=== PATIENT | male | born 1970 ===

== ENCOUNTER → 2024-10-25 09:35 | Outpatient (BNVA) | payer MEDICARE, MEDICAID, SELFPAY | PROVIDERS: PCP Family Medicine; Referring Provider Family Medicine; Visit Provider Podiatrist | DX: E11.8 Type 2 diabetes mellitus with unspecified complications (principal); L60.0 Ingrowing nail; M79.672 Pain in left foot | CPT/HCPCS: 11750; 99204 ==

== ENCOUNTER 2024-11-22 03:14 | Outpatient (CLI) | payer MEDICARE, MEDICAID, SELFPAY ==
[2024-11-22 08:16] LABS: Abs Immature Grans 0.02 10^3/uL (0.0-0.06); Absolute Basophil Count 0.01 10^3/uL (0.0-0.2); Absolute Eosinophil Count 0.09 10^3/uL (0.0-0.7); Absolute Lymphocyte Count 1.22 10^3/uL (1.2-3.4); Absolute Neutrophil Count 4.08 10^3/uL (1.2-6.7); Basophils % 0.2 %; Eosinophils % 1.5 %; HCT 39.7 % (40.0-50.0); HGB 13.1 g/dL (13.5-17.5); Immature Grans % 0.3 %; Lymphocytes % 20.3 %; MCH 32.1 pg (27.0-33.0); MCV 97 fL (80-95); MPV 9.6 fL (8.0-11.0); Neutrophils % 67.7 %; Platelet Count 220 10^3/uL (130-400); RBC 4.08 10^6/uL (4.36-5.78); RDW 12.1 % (11.8-14.1); RDW-SD 43.8 fL; WBC 6.02 10^3/uL (4.4-10.8)
[2024-11-22 08:37] LABS: Hemoglobin A1C 5.6 % (<5.7)
[2024-11-22 09:09] LABS: ALT 51 U/L (16-63); AST 32 U/L (15-37); Albumin 3.1 g/dL (3.4-5.0); Alkaline Phosphatase 93 U/L (46-116); Bilirubin, Direct 0.2 mg/dL (0.0-0.2); Bilirubin, Total 0.6 mg/dL (0.2-1.0); C-Reactive Protein 13.47 mg/dL (<or=0.5)
[2024-11-22 09:17] LABS: ALT 52 U/L (16-63); AST 32 U/L (15-37); Albumin 3.1 g/dL (3.4-5.0); Alkaline Phosphatase 92 U/L (46-116); Anion Gap 11.2 mmol/L (3-11); BUN 39 mg/dL (7-18); Bilirubin, Total 0.6 mg/dL (0.2-1.0); CO2 26.8 mmol/L (21.0-32.0); CREATININE 2.1 mg/dL (0.70-1.30); Calcium 9.2 mg/dL (8.5-10.1); Calculated LDL 60 mg/dL (<100); Chloride 105 mmol/L (98-107); Cholesterol 133 mg/dL (<200); Estimated GFR 36.95 (mL/min/1.73m2); Glucose 134 mg/dL (74-106); HDL Cholesterol 51 mg/dL (>or=40); Potassium 4.5 mmol/L (3.5-5.1); Sodium 143 mmol/L (136-145); TSH 0.94 uIU/mL (0.36-3.74); Total Protein 7.9 g/dL (6.4-8.2); Triglyceride 111 mg/dL (<150)
[2024-11-26 13:39] LABS: TB Interpretation Negative (Negative)
== END 2024-11-22 03:15 | disposition home or self-care (01) ==
LOC: LBO 03:14
PROVIDERS: Internal Medicine Gastroenterology; PCP Family Medicine; Visit Provider Family Medicine
DX: K75.81 Nonalcoholic steatohepatitis (NASH) (principal); E11.9 Type 2 diabetes mellitus without complications; K50.90 Crohn's disease, unspecified, without complications; K50.818 Crohn's disease of both small and large intestine with other complication
CPT/HCPCS: 36415; 80053; 80061; 80076; 83036; 84443; 85025; 86140; 86480

== ENCOUNTER → 2024-11-27 13:13 | Outpatient (BNVA) | payer MEDICARE, MEDICAID, SELFPAY | PROVIDERS: PCP Family Medicine; Referring Provider Family Medicine; Visit Provider Podiatrist | DX: E11.8 Type 2 diabetes mellitus with unspecified complications (principal); L60.0 Ingrowing nail; M79.672 Pain in left foot | CPT/HCPCS: 99213 ==

== ENCOUNTER → 2025-06-04 12:55 | Outpatient (BNVA) | payer MEDICARE, MEDICAID, SELFPAY | PROVIDERS: PCP Family Medicine; Referring Provider Family Medicine; Visit Provider Podiatrist | DX: E11.8 Type 2 diabetes mellitus with unspecified complications (principal); L60.0 Ingrowing nail; M79.672 Pain in left foot | CPT/HCPCS: 99213 ==